=== PATIENT | female | born 2005 | race Caucasian/White ===

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

== ENCOUNTER 2025-04-12 14:18 | Outpatient (CLI) | payer OTHER, SELFPAY ==
--- NOTE | ~2025-04-12 | XR_ITS ---
EXAMINATION: [id number] DATE: 04/12/2025 15:13 INDICATION: Abdominal distention. TECHNIQUE: Upright and supine views of the abdomen on 3 radiographs were obtained. COMPARISON: None. FINDINGS: There is a large volume of stool in colon in the pelvis and right abdomen with distention of the colon. The small bowel is normal in caliber. No free intraperitoneal gas. There is a gastrostomy tube in expected position. IMPRESSION: 1. Distended colon in the pelvis and right abdomen that may be the ascending colon or the sigmoid colon, consistent with stool impaction. Reviewed, dictated and finalized at location E. IMPRESSION: 1. Distended colon in the pelvis and right abdomen that may be the ascending co dary or the sigmoid colon, consistent with stool impaction.
== END 2025-04-12 14:19 | disposition home or self-care (01) ==
LOC: MICIMG 14:27
PROVIDERS: PCP Pediatrics; Visit Provider Pediatrics
DX: R14.0 Abdominal distension (gaseous) (principal)
CPT/HCPCS: 74021